=== PATIENT | male | born 1950 | race African-American/Black ===

== ENCOUNTER 2020-01-29 06:28 | Inpatient (IN) | payer MEDICARE, OTHER ==
[~2020-01-29] VITALS: Ht 157.5 cm; Wt 170.1 kg
[2020-01-29] VITALS (22 sets, daily range): BP systolic 119–166; BP diastolic 71–105
[2020-01-29] MEDS ORDERED: HYDROCODONE/ACETAMINOPHEN 5/325MG TABLET PO ONE (07:15)
[2020-01-29] MEDS ORDERED: ONDANSETRON 4MG ODT PO ONE (07:15)
[2020-01-29] MEDS ORDERED: PIPERACILLIN SODIUM/TAZOBACTAM 4.5 G in DEXT 5% WATER 100 ML IV SCH (08:45)
[2020-01-29 08:56] LABS: BASOPHILS % 0.5 % (0.0-2.0); EOSINOPHILS % 4.3 % (0.0-5.0); HEMATOCRIT. 39.6 % (42.0-52.0); HEMOGLOBIN. 12.5 g/dL (14.0-18.0); MEAN CORPUSCULAR VOLUME 79.4 fL (80.0-94.0); MEAN PLATELET VOLUME 8.5 fl (7.4-10.4); MONOCYTES % 9.9 % (2.0-8.0); NEUTROPHILS % 73.3 % (40.0-76.0); PLATELET 282 x1000/uL (130-400); RED BLOOD CELL COUNT 4.99 mill/uL (4.7-6.1); RED CELL DISTRIBUTION WIDTH 17.6 % (11.6-14.6)
[2020-01-29] MEDS ORDERED: CLINDAMYCIN 900 MG in DEXTROSE 5% WATER 50 ML IV ONE (09:00)
[2020-01-29 09:03] LABS: CHLORIDE 102 mEq/L (98-107)
[2020-01-29 09:16] LABS: CLARITY URINE CLEAR (CLEAR); COLOR URINE YELLOW (YELLOW); KETONES URINE 1+ (NEGATIVE); LEUKOCYTE ESTERASE URINE NEGATIVE (NEGATIVE); NITRITE URINE NEGATIVE (NEGATIVE); OCCULT BLOOD URINE NEGATIVE (NEGATIVE); PH URINE 7.5 (4.5-8.0); PROTEIN URINE NEGATIVE (NEGATIVE); SPECIFIC GRAVITY URINE 1.011 (1.005-1.030)
[2020-01-29] MEDS ORDERED: ONDANSETRON HCL 4MG/2ML INJ IV PRN (09:30)
[2020-01-29] MEDS ORDERED: HYDROCODONE/ACETAMINOPHEN 5/325MG TABLET PO PRN (09:30)
[2020-01-29] MEDS ORDERED: ACETAMINOPHEN 325MG TABLET PO PRN (09:30)
[2020-01-29] MEDS ORDERED: CLINDAMYCIN 600 MG in DEXTROSE 5% WATER 50 ML IV SCH (09:30)
[2020-01-29] MEDS ORDERED: DEXTROSE 50% WATER 50ML SYRINGE IV PRN (09:30)
[2020-01-29 09:52] LABS: INR 1.1
[2020-01-29] MEDS: LOSARTAN POTASSIUM 100 MG TABLET PO SCH (11:00)
[2020-01-29 11:44] LABS: HEPATITIS B SURFACE ANTIGEN NEGATIVE
[2020-01-29 12:14] LABS: HEPATITIS A AB IGM NEGATIVE (NEGATIVE)
[2020-01-29] MEDS: BLOOD SUGAR DIAGNOSTIC STRIP TEST SCH ×3 (12:30→21:12)
[2020-01-29] MEDS ORDERED: ENOXAPARIN 40MG/0.4ML SYR SUBCUT SCH (12:45)
[2020-01-29] MEDS: INSULIN LISPRO 100 UNITS/ML SUBCUT SCH ×4 (12:50→21:00)
[2020-01-29] MEDS ORDERED: KETOROLAC 15MG/ML VIAL IV PRN (15:45)
[2020-01-29 17:25] LABS: BG BASE EXCESS 3.9 mmol/L (-2.0-2.0); BG CARBOXYHEMOGLOBIN 1.3 % (0.5-1.5); BG DEOXYHEMOGLOBIN 2.5 % (0.0-5.0); BG HCO3 ACT 35.1 mmol/L (22.0-26.0); BG METHEMOGLOBIN 0.4 % (0.0-1.5); BG OXYGEN SATURATION 97.5 % (92.0-98.5); BG OXYHEMOGLOBIN 95.8 % (94.0-97.0); BG PCO2 95.1 mmHg (35.0-45.0); BG PH 7.185 (7.350-7.450); BG PO2 109.4 mmHg (75.0-100.0); BG SAMPLE SITE RIGHT RADIAL; BG TOTAL HEMOGLOBIN 12.6 g/dL (12.0-18.0); BG VENT MODE NASAL CANNULA
[2020-01-29] MEDS ORDERED: FENTANYL CITRATE/PF 500 MCG in SODIUM CHLORIDE 0.9% 40 ML IV PRN (18:15)
[2020-01-29] MEDS ORDERED: MIDAZOLAM HCL 50 MG in DEXTROSE 5% WATER 40 ML IV PRN (18:15)
[2020-01-29] MEDS: ENOXAPARIN 30MG/0.3ML SYR SUBCUT SCH ×2 (18:59→22:06)
[2020-01-29 20:47] LABS: BG BILEVEL POS AIRWAY PRESSURE 20/5; BG DEOXYHEMOGLOBIN 5.9 % (0.0-5.0); BG FRACTION INSPIRED OXYGEN 30; BG METHEMOGLOBIN 0.1 % (0.0-1.5); BG PCO2 84.1 mmHg (35.0-45.0); BG PH 7.224 (7.350-7.450); BG PO2 74.7 mmHg (75.0-100.0); BG SAMPLE SITE RIGHT RADIAL; BG VENT MODE MASK - BIPAP; BG VENT RATE 16 set
[2020-01-29] MEDS: AMLODIPINE 5MG TABLET PO SCH (21:00)
[2020-01-29] MEDS: CLINDAMYCIN 600MG PREMIX 50 ML IV SCH (21:13)
[2020-01-30] VITALS (49 sets, daily range): BP systolic 89–160; BP diastolic 52–113
[2020-01-30] MEDS: IPRATROPIUM/ALBUTEROL 0.5-3(2.5)MG/3ML NEB HHN SCH ×4 (04:16→20:35)
[2020-01-30] MEDS: CLINDAMYCIN 600MG PREMIX 50 ML IV SCH ×2 (05:24→16:59)
[2020-01-30 05:57] LABS: HEMATOCRIT. 38.3 % (42.0-52.0); HEMOGLOBIN. 11.9 g/dL (14.0-18.0); MEAN CORPUSCULAR HEMOGLOBIN 25.1 pg (28.0-32.0); MEAN CORPUSCULAR VOLUME 80.9 fL (80.0-94.0); RED BLOOD CELL COUNT 4.74 mill/uL (4.7-6.1); RED CELL DISTRIBUTION WIDTH 17.5 % (11.6-14.6)
[2020-01-30 07:01] LABS: CHLORIDE 104 mEq/L (98-107)
[2020-01-30] MEDS: INSULIN LISPRO 100 UNITS/ML SUBCUT SCH ×4 (08:20→20:45)
[2020-01-30] MEDS: BLOOD SUGAR DIAGNOSTIC STRIP TEST SCH ×4 (08:29→20:45)
[2020-01-30 08:39] LABS: BG BILEVEL POS AIRWAY PRESSURE 20/5; BG CARBOXYHEMOGLOBIN 0.2 % (0.5-1.5); BG DEOXYHEMOGLOBIN 3.6 % (0.0-5.0); BG FRACTION INSPIRED OXYGEN 30; BG HCO3 ACT 33.6 mmol/L (22.0-26.0); BG METHEMOGLOBIN 1.3 % (0.0-1.5); BG OXYGEN SATURATION 96.3 % (92.0-98.5); BG OXYHEMOGLOBIN 94.9 % (94.0-97.0); BG PCO2 71.6 mmHg (35.0-45.0); BG PH 7.289 (7.350-7.450); BG PO2 91.5 mmHg (75.0-100.0); BG SAMPLE SITE RIGHT BRACHIAL; BG TOTAL HEMOGLOBIN 11.9 g/dL (12.0-18.0); BG VENT MODE MASK - BIPAP; BG VENT RATE 16 set
[2020-01-30] MEDS: SODIUM CHLORIDE 0.45% 1,000 ML IV SCH ×2 (09:35→23:02)
[2020-01-30] MEDS: ASPIRIN 81MG TABLET PO SCH (09:35)
[2020-01-30] MEDS: LOSARTAN POTASSIUM 100 MG TABLET PO SCH (09:35)
[2020-01-30] MEDS: AMLODIPINE 5MG TABLET PO SCH (09:37)
[2020-01-30] MEDS: ENOXAPARIN 30MG/0.3ML SYR SUBCUT SCH (09:41)
[2020-01-30 10:26] LABS: PLATELET ESTIMATE NORMAL
[2020-01-30 10:27] LABS: MEAN PLATELET VOLUME 9.3 fl (7.4-10.4); PLATELET 260 x1000/uL (130-400)
[2020-01-30] MEDS: FUROSEMIDE 40MG/4ML VIAL IVP SCH (16:59)
[2020-01-30] MEDS: DILTIAZEM HCL 90MG TABLET PO SCH (18:06)
[2020-01-30] MEDS: ENOXAPARIN 40MG/0.4ML SYR SUBCUT SCH (20:46)
[2020-01-30] MEDS ORDERED: METOPROLOL TARTRATE 25MG TABLET PO SCH (21:00)
[2020-01-31] VITALS (32 sets, daily range): BP systolic 108–155; BP diastolic 62–101
[2020-01-31] MEDS: IPRATROPIUM/ALBUTEROL 0.5-3(2.5)MG/3ML NEB HHN SCH ×4 (01:11→20:30)
[2020-01-31 05:27] LABS: BASOPHILS % 0.8 % (0.0-2.0); EOSINOPHILS % 4.5 % (0.0-5.0); HEMATOCRIT. 35.6 % (42.0-52.0); HEMOGLOBIN. 11.2 g/dL (14.0-18.0); LYMPHOCYTES % 20.9 % (20.0-50.0); MEAN CORPUSCULAR HEMOGLOBIN 25.3 pg (28.0-32.0); MEAN CORPUSCULAR VOLUME 80.5 fL (80.0-94.0); MEAN PLATELET VOLUME 8.7 fl (7.4-10.4); MONOCYTES % 12.6 % (2.0-8.0); NEUTROPHILS % 61.2 % (40.0-76.0); PLATELET 249 x1000/uL (130-400); RED BLOOD CELL COUNT 4.42 mill/uL (4.7-6.1); RED CELL DISTRIBUTION WIDTH 17.7 % (11.6-14.6)
[2020-01-31] MEDS: DILTIAZEM HCL 90MG TABLET PO SCH ×4 (06:02→17:27)
[2020-01-31] MEDS: BLOOD SUGAR DIAGNOSTIC STRIP TEST SCH ×4 (07:50→21:00)
[2020-01-31] MEDS: INSULIN LISPRO 100 UNITS/ML SUBCUT SCH ×4 (08:20→21:00)
[2020-01-31] MEDS: LOSARTAN POTASSIUM 100 MG TABLET PO SCH (08:52)
[2020-01-31] MEDS: ENOXAPARIN 40MG/0.4ML SYR SUBCUT SCH ×2 (08:52→20:28)
[2020-01-31] MEDS: ASPIRIN 81MG TABLET PO SCH (08:52)
[2020-01-31] MEDS: FUROSEMIDE 40MG/4ML VIAL IVP SCH (08:52)
[2020-01-31 10:04] LABS: BG BASE EXCESS 4.2 mmol/L (-2.0-2.0); BG BILEVEL POS AIRWAY PRESSURE 20/5; BG CARBOXYHEMOGLOBIN 0.7 % (0.5-1.5); BG DEOXYHEMOGLOBIN 2.3 % (0.0-5.0); BG FRACTION INSPIRED OXYGEN 28; BG HCO3 ACT 30.4 mmol/L (22.0-26.0); BG METHEMOGLOBIN 0.2 % (0.0-1.5); BG OXYGEN SATURATION 97.7 % (92.0-98.5); BG OXYHEMOGLOBIN 96.8 % (94.0-97.0); BG PCO2 53.6 mmHg (35.0-45.0); BG PH 7.372 (7.350-7.450); BG PO2 93.3 mmHg (75.0-100.0); BG SAMPLE SITE RIGHT RADIAL; BG TOTAL HEMOGLOBIN 10.9 g/dL (12.0-18.0); BG VENT MODE MASK - BIPAP; BG VENT RATE 16 set
[2020-01-31] MEDS: CLINDAMYCIN 600MG PREMIX 50 ML IV SCH ×2 (10:43→18:30)
[2020-02-01] VITALS (10 sets, daily range): BP systolic 132–179; BP diastolic 76–101
[2020-02-01] MEDS: DILTIAZEM HCL 90MG TABLET PO SCH ×5 (01:13→23:25)
[2020-02-01] MEDS: IPRATROPIUM/ALBUTEROL 0.5-3(2.5)MG/3ML NEB HHN SCH ×3 (01:43→23:43)
[2020-02-01] MEDS: CLINDAMYCIN 600MG PREMIX 50 ML IV SCH ×3 (04:21→18:33)
[2020-02-01 05:51] LABS: BASOPHILS % 0.4 % (0.0-2.0); EOSINOPHILS % 5.9 % (0.0-5.0); HEMATOCRIT. 32.8 % (42.0-52.0); HEMOGLOBIN. 10.3 g/dL (14.0-18.0); MEAN CORPUSCULAR HEMOGLOBIN 24.9 pg (28.0-32.0); MEAN CORPUSCULAR VOLUME 79.3 fL (80.0-94.0); MEAN PLATELET VOLUME 8.7 fl (7.4-10.4); NEUTROPHILS % 59.7 % (40.0-76.0); PLATELET 248 x1000/uL (130-400); RED BLOOD CELL COUNT 4.13 mill/uL (4.7-6.1); RED CELL DISTRIBUTION WIDTH 17.1 % (11.6-14.6)
[2020-02-01] MEDS: BLOOD SUGAR DIAGNOSTIC STRIP TEST SCH ×4 (06:41→20:22)
[2020-02-01 09:17] LABS: BG BASE EXCESS 8.7 mmol/L (-2.0-2.0); BG CARBOXYHEMOGLOBIN 0.1 % (0.5-1.5); BG DEOXYHEMOGLOBIN 3.4 % (0.0-5.0); BG FRACTION INSPIRED OXYGEN 32; BG HCO3 ACT 36.4 mmol/L (22.0-26.0); BG OXYGEN SATURATION 96.6 % (92.0-98.5); BG OXYHEMOGLOBIN 96.5 % (94.0-97.0); BG PCO2 68.1 mmHg (35.0-45.0); BG PH 7.346 (7.350-7.450); BG PO2 85.9 mmHg (75.0-100.0); BG SAMPLE SITE RIGHT BRACHIAL; BG TOTAL HEMOGLOBIN 11.3 g/dL (12.0-18.0); BG VENT MODE NASAL CANNULA
[2020-02-01] MEDS: ASPIRIN 81MG TABLET PO SCH (09:37)
[2020-02-01] MEDS: LOSARTAN POTASSIUM 100 MG TABLET PO SCH (09:37)
[2020-02-01] MEDS: FUROSEMIDE 40MG/4ML VIAL IVP SCH (09:38)
[2020-02-01] MEDS: ENOXAPARIN 40MG/0.4ML SYR SUBCUT SCH ×2 (09:39→20:30)
[2020-02-01] MEDS: INSULIN LISPRO 100 UNITS/ML SUBCUT SCH ×4 (09:40→20:22)
[2020-02-01] MEDS: CLONIDINE 0.1MG TABLET PO PRN ×2 (16:49→20:30)
[2020-02-02] VITALS: BP 158/92
[2020-02-02 02:00] VITALS: BP 147/86
[2020-02-02] MEDS: CLINDAMYCIN 600MG PREMIX 50 ML IV SCH ×3 (02:56→18:22)
[2020-02-02] MEDS: DILTIAZEM HCL 90MG TABLET PO SCH ×5 (05:41→23:36)
[2020-02-02 06:14] LABS: CHLORIDE 102 mEq/L (98-107)
[2020-02-02 07:58] VITALS: BP 155/77
[2020-02-02] MEDS: INSULIN LISPRO 100 UNITS/ML SUBCUT SCH ×4 (08:00→20:40)
[2020-02-02] MEDS: IPRATROPIUM/ALBUTEROL 0.5-3(2.5)MG/3ML NEB HHN SCH ×3 (08:20→21:07)
[2020-02-02] MEDS: FUROSEMIDE 40MG/4ML VIAL IVP SCH (08:27)
[2020-02-02] MEDS: BLOOD SUGAR DIAGNOSTIC STRIP TEST SCH ×4 (08:27→20:40)
[2020-02-02] MEDS: ENOXAPARIN 40MG/0.4ML SYR SUBCUT SCH ×2 (08:27→21:45)
[2020-02-02] MEDS: ASPIRIN 81MG TABLET PO SCH (08:27)
[2020-02-02] MEDS: LOSARTAN POTASSIUM 100 MG TABLET PO SCH (08:27)
[2020-02-02 10:16] LABS: BG BASE EXCESS 14.2 mmol/L (-2.0-2.0); BG CARBOXYHEMOGLOBIN 0.6 % (0.5-1.5); BG DEOXYHEMOGLOBIN 16.4 % (0.0-5.0); BG FRACTION INSPIRED OXYGEN 21; BG HCO3 ACT 41.6 mmol/L (22.0-26.0); BG METHEMOGLOBIN 0.4 % (0.0-1.5); BG OXYGEN SATURATION 83.4 % (92.0-98.5); BG OXYHEMOGLOBIN 82.6 % (94.0-97.0); BG PCO2 66.5 mmHg (35.0-45.0); BG PH 7.414 (7.350-7.450); BG PO2 45.8 mmHg (75.0-100.0); BG SAMPLE SITE RIGHT RADIAL; BG TOTAL HEMOGLOBIN 12.2 g/dL (12.0-18.0); BG VENT MODE ROOM AIR
[2020-02-02] MEDS: HYDRALAZINE HCL 50MG TABLET PO SCH ×4 (11:52→17:30)
[2020-02-02 11:59] VITALS: BP 166/96
[2020-02-02 14:00] VITALS: BP 176/99
[2020-02-02 15:34] VITALS: BP 168/97
[2020-02-02] MEDS: CLONIDINE 0.1MG TABLET PO PRN (21:46)
[2020-02-02] MEDS: HYDRALAZINE 20MG/ML VIAL IV PRN (23:36)
[2020-02-03] VITALS (11 sets, daily range): BP systolic 103–190; BP diastolic 51–105
[2020-02-03] MEDS: HYDRALAZINE HCL 50MG TABLET PO SCH ×3 (02:00→10:49)
[2020-02-03] MEDS: CLINDAMYCIN 600MG PREMIX 50 ML IV SCH ×3 (02:07→21:10)
[2020-02-03] MEDS: DILTIAZEM HCL 90MG TABLET PO SCH ×2 (05:40→06:17)
[2020-02-03] MEDS: CLONIDINE 0.1MG TABLET PO PRN (06:18)
[2020-02-03] MEDS: BLOOD SUGAR DIAGNOSTIC STRIP TEST SCH ×4 (07:30→21:00)
[2020-02-03] MEDS: INSULIN LISPRO 100 UNITS/ML SUBCUT SCH ×4 (08:00→21:18)
[2020-02-03] MEDS: FUROSEMIDE 40MG/4ML VIAL IVP SCH (08:30)
[2020-02-03] MEDS: LOSARTAN POTASSIUM 100 MG TABLET PO SCH (08:31)
[2020-02-03] MEDS: ENOXAPARIN 40MG/0.4ML SYR SUBCUT SCH ×2 (08:31→21:10)
[2020-02-03] MEDS: ASPIRIN 81MG TABLET PO SCH (08:31)
[2020-02-03] MEDS: IPRATROPIUM/ALBUTEROL 0.5-3(2.5)MG/3ML NEB HHN SCH ×2 (08:43→15:03)
[2020-02-03] MEDS: DILTIAZEM HCL 120MG CAPSULE CD 24HR PO SCH ×2 (14:01→21:09)
[2020-02-03] MEDS: HYDRALAZINE HCL 100MG TABLET PO SCH (18:06)
[2020-02-04] VITALS (13 sets, daily range): BP systolic 109–153; BP diastolic 52–76
[2020-02-04] MEDS: IPRATROPIUM/ALBUTEROL 0.5-3(2.5)MG/3ML NEB HHN SCH ×3 (00:16→20:35)
[2020-02-04] MEDS: HYDRALAZINE HCL 100MG TABLET PO SCH ×3 (03:30→18:25)
[2020-02-04] MEDS: CLINDAMYCIN 600MG PREMIX 50 ML IV SCH ×3 (03:31→21:11)
[2020-02-04] MEDS: BLOOD SUGAR DIAGNOSTIC STRIP TEST SCH ×4 (07:30→21:08)
[2020-02-04] MEDS: INSULIN LISPRO 100 UNITS/ML SUBCUT SCH ×4 (08:00→21:00)
[2020-02-04] MEDS: FUROSEMIDE 40MG/4ML VIAL IVP SCH (08:59)
[2020-02-04] MEDS: ENOXAPARIN 40MG/0.4ML SYR SUBCUT SCH ×2 (08:59→21:12)
[2020-02-04] MEDS: ASPIRIN 81MG TABLET PO SCH (09:00)
[2020-02-04] MEDS: LOSARTAN POTASSIUM 100 MG TABLET PO SCH (09:00)
[2020-02-04] MEDS: DILTIAZEM HCL 120MG CAPSULE CD 24HR PO SCH ×2 (09:19→21:11)
[2020-02-04 13:13] LABS: BASOPHILS % 1.7 % (0.0-2.0); EOSINOPHILS % 8.3 % (0.0-5.0); HEMATOCRIT. 37.5 % (42.0-52.0); HEMOGLOBIN. 11.7 g/dL (14.0-18.0); LYMPHOCYTES % 22.1 % (20.0-50.0); MEAN CORPUSCULAR HEMOGLOBIN 24.7 pg (28.0-32.0); MEAN PLATELET VOLUME 8.4 fl (7.4-10.4); NEUTROPHILS % 53.9 % (40.0-76.0); PLATELET 305 x1000/uL (130-400); RED BLOOD CELL COUNT 4.74 mill/uL (4.7-6.1); RED CELL DISTRIBUTION WIDTH 17.5 % (11.6-14.6)
[2020-02-04 13:31] LABS: CHLORIDE 99 mEq/L (98-107)
[2020-02-05] VITALS (8 sets, daily range): BP systolic 120–156; BP diastolic 65–77
[2020-02-05] MEDS: IPRATROPIUM/ALBUTEROL 0.5-3(2.5)MG/3ML NEB HHN SCH ×4 (01:05→21:31)
[2020-02-05] MEDS: HYDRALAZINE HCL 100MG TABLET PO SCH ×3 (02:00→17:33)
[2020-02-05] MEDS: CLINDAMYCIN 600MG PREMIX 50 ML IV SCH ×2 (03:44→11:17)
[2020-02-05] MEDS: BLOOD SUGAR DIAGNOSTIC STRIP TEST SCH ×4 (07:48→21:44)
[2020-02-05] MEDS: INSULIN LISPRO 100 UNITS/ML SUBCUT SCH ×4 (08:00→21:52)
[2020-02-05] MEDS: ASPIRIN 81MG TABLET PO SCH (09:36)
[2020-02-05] MEDS: ENOXAPARIN 40MG/0.4ML SYR SUBCUT SCH ×2 (09:39→21:51)
[2020-02-05] MEDS: DILTIAZEM HCL 120MG CAPSULE CD 24HR PO SCH ×2 (09:42→21:51)
[2020-02-05] MEDS: LOSARTAN POTASSIUM 100 MG TABLET PO SCH (09:42)
[2020-02-05] MEDS: FUROSEMIDE 40MG/4ML VIAL IVP SCH (09:43)
[2020-02-05] MEDS ORDERED: LOSA100T3 PO (10:23)
[2020-02-05] MEDS ORDERED: FURO-151 MT (10:23)
[2020-02-05] MEDS ORDERED: DILT120C88 PO (10:23)
[2020-02-05] MEDS ORDERED: HYDR100T26 PO (10:23)
[2020-02-05] MEDS ORDERED: POTA-79 MT (10:23)
[2020-02-06] VITALS (8 sets, daily range): BP systolic 101–144; BP diastolic 64–99
[2020-02-06] MEDS: HYDRALAZINE HCL 100MG TABLET PO SCH ×3 (02:39→17:37)
[2020-02-06] MEDS: BLOOD SUGAR DIAGNOSTIC STRIP TEST SCH ×4 (07:48→20:38)
[2020-02-06] MEDS: INSULIN LISPRO 100 UNITS/ML SUBCUT SCH ×4 (08:00→20:41)
[2020-02-06] MEDS: IPRATROPIUM/ALBUTEROL 0.5-3(2.5)MG/3ML NEB HHN SCH ×2 (08:57→15:50)
[2020-02-06] MEDS: DILTIAZEM HCL 120MG CAPSULE CD 24HR PO SCH ×2 (09:34→20:38)
[2020-02-06] MEDS: ASPIRIN 81MG TABLET PO SCH (09:35)
[2020-02-06] MEDS: LOSARTAN POTASSIUM 100 MG TABLET PO SCH (09:35)
[2020-02-06] MEDS: FUROSEMIDE 40MG/4ML VIAL IVP SCH (09:39)
[2020-02-06] MEDS: ENOXAPARIN 40MG/0.4ML SYR SUBCUT SCH ×2 (09:41→20:38)
[2020-02-07] VITALS (11 sets, daily range): BP systolic 130–193; BP diastolic 70–95
[2020-02-07] MEDS: IPRATROPIUM/ALBUTEROL 0.5-3(2.5)MG/3ML NEB HHN SCH ×3 (01:26→14:06)
[2020-02-07] MEDS: HYDRALAZINE HCL 100MG TABLET PO SCH ×3 (02:00→18:00)
[2020-02-07] MEDS: BLOOD SUGAR DIAGNOSTIC STRIP TEST SCH ×4 (07:34→21:50)
[2020-02-07] MEDS: INSULIN LISPRO 100 UNITS/ML SUBCUT SCH ×4 (07:34→21:00)
[2020-02-07] MEDS: LOSARTAN POTASSIUM 100 MG TABLET PO SCH (09:22)
[2020-02-07] MEDS: ASPIRIN 81MG TABLET PO SCH (09:23)
[2020-02-07] MEDS: DILTIAZEM HCL 120MG CAPSULE CD 24HR PO SCH ×2 (09:23→21:50)
[2020-02-07] MEDS: FUROSEMIDE 40MG/4ML VIAL IVP SCH (09:26)
[2020-02-07] MEDS: ENOXAPARIN 40MG/0.4ML SYR SUBCUT SCH ×2 (09:26→21:00)
[2020-02-08] VITALS (7 sets, daily range): BP systolic 104–174; BP diastolic 56–96
[2020-02-08] MEDS: IPRATROPIUM/ALBUTEROL 0.5-3(2.5)MG/3ML NEB HHN SCH ×4 (00:36→15:51)
[2020-02-08] MEDS: HYDRALAZINE HCL 100MG TABLET PO SCH ×4 (02:18→20:04)
[2020-02-08] MEDS: BLOOD SUGAR DIAGNOSTIC STRIP TEST SCH ×4 (09:32→20:05)
[2020-02-08] MEDS: ENOXAPARIN 40MG/0.4ML SYR SUBCUT SCH ×2 (09:33→20:05)
[2020-02-08] MEDS: FUROSEMIDE 40MG/4ML VIAL IVP SCH (09:33)
[2020-02-08] MEDS: ASPIRIN 81MG TABLET PO SCH (09:33)
[2020-02-08] MEDS: DILTIAZEM HCL 120MG CAPSULE CD 24HR PO SCH ×2 (09:34→20:04)
[2020-02-08] MEDS: INSULIN LISPRO 100 UNITS/ML SUBCUT SCH ×4 (09:35→20:14)
[2020-02-08] MEDS: LOSARTAN POTASSIUM 100 MG TABLET PO SCH (10:58)
[2020-02-08] MEDS: HYDRALAZINE 20MG/ML VIAL IV PRN (20:53)
== END 2020-02-08 22:45 | disposition home health service (06) | DRG 871 ==
LOC: ER 06:28 → 6EST 08:59 → EDBEDREQ 09:08 → ENRESERV 11:33 → CVICU 17:55 → 5EST 01-31 14:36
PROVIDERS: ADMIT Internal Medicine; ATTEND Internal Medicine
PROC: 5A09457 Assistance with Respiratory Ventilation, 24-96 Consecutive Hours, Continuous Positive Airway Pressure (ICD-10-PCS; principal; 2020-01-29)
PROC: 5A09357 Assistance with Respiratory Ventilation, Less than 24 Consecutive Hours, Continuous Positive Airway Pressure (ICD-10-PCS; 2020-02-01)
PROC: 5A09357 Assistance with Respiratory Ventilation, Less than 24 Consecutive Hours, Continuous Positive Airway Pressure (ICD-10-PCS; 2020-02-04)
DX: A41.9 Sepsis, unspecified organism (principal); I21.4 Non-ST elevation (NSTEMI) myocardial infarction; G93.41 Metabolic encephalopathy; E43 Unspecified severe protein-calorie malnutrition; J96.22 Acute and chronic respiratory failure with hypercapnia; J96.21 Acute and chronic respiratory failure with hypoxia; I50.33 Acute on chronic diastolic (congestive) heart failure; L97.429 Non-pressure chronic ulcer of left heel and midfoot with unspecified severity; E66.2 Morbid (severe) obesity with alveolar hypoventilation; I47.1 Supraventricular tachycardia; I48.92 Unspecified atrial flutter; N17.9 Acute kidney failure, unspecified; G82.20 Paraplegia, unspecified; J44.1 Chronic obstructive pulmonary disease with (acute) exacerbation; Z68.44 Body mass index [BMI] 60.0-69.9, adult; N49.2 Inflammatory disorders of scrotum; E11.621 Type 2 diabetes mellitus with foot ulcer; I11.0 Hypertensive heart disease with heart failure; N43.3 Hydrocele, unspecified; D64.9 Anemia, unspecified; I27.20 Pulmonary hypertension, unspecified; R74.0 Nonspecific elevation of levels of transaminase and lactic acid dehydrogenase [LDH]; M17.0 Bilateral primary osteoarthritis of knee; R53.81 Other malaise; F19.10 Other psychoactive substance abuse, uncomplicated; S80.821A Blister (nonthermal), right lower leg, initial encounter; Z74.01 Bed confinement status; Z99.3 Dependence on wheelchair; Z71.3 Dietary counseling and surveillance; X58.XXXA Exposure to other specified factors, initial encounter; Y93.89 Activity, other specified; Y92.89 Other specified places as the place of occurrence of the external cause; Y99.8 Other external cause status
CPT/HCPCS: 36415; 36600; 71045; 73650; 76870; 80048; 80053; 81003; 82140; 82375; 82805; 82962; 83605; 84145; 84484; 85025; 86705; 86709; 86803; 87340; 92523; 92610; 93005; 93306; 93970; 93976; 94640; 94660; 96365; 96368; 97162; 97166; 97530; 97535; 99285; J0360; J1650; J1815; J1940; J2250; J2405; J2543; J3010; J3490; J7060; Q0162

== ENCOUNTER 2022-01-13 18:24 | Inpatient (IN) | payer MEDICARE ==
[~2022-01-13] VITALS: Ht 177.8 cm; Wt 168.3 kg
[~2022-01-13 18:24] MED LIST: DILT120C88 PO; ETOMIDATE 2MG/ML 10ML VIAL IV ONE; FURO-151 MT; HYDR100T26 PO; LOSA100T3 PO; POTA-79 MT; SODIUM CHLORIDE 0.9% 10ML VIAL ONE; VECURONIUM BROMIDE 10 MG/VIAL IV ONE
[2022-01-13 19:25] LABS: BASOPHILS % 0.4 % (0.0-2.0); EOSINOPHILS % 4.2 % (0.0-5.0); HEMATOCRIT. 43.5 % (42.0-52.0); LYMPHOCYTES % 15.8 % (20.0-50.0); MEAN CORPUSCULAR HEMOGLOBIN 24.8 pg (28.0-32.0); MEAN CORPUSCULAR VOLUME 82.8 fL (80.0-94.0); MEAN PLATELET VOLUME 8.8 fl (7.4-10.4); MONOCYTES % 14.1 % (2.0-8.0); NEUTROPHILS % 65.5 % (40.0-76.0); PLATELET 189 x1000/uL (130-400); RED BLOOD CELL COUNT 5.25 mill/uL (4.7-6.1); RED CELL DISTRIBUTION WIDTH 16.8 % (11.6-14.6)
[2022-01-13 19:57] LABS: BG BASE EXCESS 3.4 mmol/L (-2.0-2.0); BG CARBOXYHEMOGLOBIN 1.2 % (0.5-1.5); BG DEOXYHEMOGLOBIN 0.4 % (0.0-5.0); BG FRACTION INSPIRED OXYGEN 100; BG HCO3 ACT 34.8 mmol/L (22.0-26.0); BG METHEMOGLOBIN 0.3 % (0.0-1.5); BG OXYGEN SATURATION 99.6 % (92.0-98.5); BG OXYHEMOGLOBIN 98.1 % (94.0-97.0); BG PCO2 94.7 mmHg (35.0-45.0); BG PH 7.183 (7.350-7.450); BG PO2 279.8 mmHg (75.0-100.0); BG SAMPLE SITE RIGHT RADIAL; BG TOTAL HEMOGLOBIN 13.4 g/dL (12.0-18.0); BG VENT MODE MASK - BIPAP
[2022-01-13 20:01] LABS: CHLORIDE 105 mEq/L (98-107)
[2022-01-13 20:09] LABS: ETHANOL BLOOD < 10 mg/dL
[2022-01-13 20:12] LABS: CREATINE KINASE 347 IU/L (39-308)
[2022-01-13] MEDS ORDERED: FUROSEMIDE 100MG/10ML VIAL IV NR (20:24)
[2022-01-13] MEDS ORDERED: INSULIN REGULAR (HUMULIN R) 300UNITS/3ML VIAL IV NR (20:30)
[2022-01-13] MEDS ORDERED: SODIUM BICARBONATE 8.4% 1 MEQ/ML 50ML SYR IV NR (20:30)
[2022-01-13] MEDS ORDERED: CALCIUM GLUCONATE 100MG/ML 10ML VIAL IV NR (20:30)
[2022-01-13] MEDS ORDERED: DEXTROSE 50% WATER 50ML SYRINGE IV NR (20:30)
[2022-01-13] MEDS: SODIUM POLYSTYRENE SULFONATE 15 G/60 ML BOT PO NR (20:30)
[2022-01-13] MEDS ORDERED: PROPOFOL 10MG/ML 100ML 100 ML IV SCH (21:00)
[2022-01-13 23:10] LABS: CLARITY URINE CLOUDY (CLEAR); COLOR URINE DARK YELLOW (YELLOW); KETONES URINE TRACE (NEGATIVE); LEUKOCYTE ESTERASE URINE TRACE (NEGATIVE); NITRITE URINE NEGATIVE (NEGATIVE); OCCULT BLOOD URINE NEGATIVE (NEGATIVE); PROTEIN URINE 2+ (NEGATIVE); SPECIFIC GRAVITY URINE 1.027 (1.005-1.030)
[2022-01-13 23:21] LABS: *AMPHETAMINES SCREEN URINE NEGATIVE (NEGATIVE); *BARBITURATES SCREEN URINE NEGATIVE (NEGATIVE); *BENZODIAZEPINES SCREEN URINE NEGATIVE (NEGATIVE); *COCAINE SCREEN URINE NEGATIVE (NEGATIVE)
[2022-01-13 23:22] LABS: CANNABINOID URINE SCREEN NEGATIVE (NEGATIVE); METHADONE URINE SCREEN NEGATIVE (NEGATIVE); OPIATES URINE SCREEN NEGATIVE (NEGATIVE); PHENCYCLIDINE URINE SCREEN NEGATIVE (NEGATIVE)
[2022-01-13] MEDS ORDERED: NALOXONE HCL 0.4 MG/ML 1ML VIAL IV PRN (23:45)
[2022-01-14] VITALS (43 sets, daily range): BP systolic 87–146; BP diastolic 50–103
[2022-01-14] MEDS ORDERED: MORPHINE SULFATE 2 MG/ML CPJ (NOT FOR IM USE) IV PRN
[2022-01-14] MEDS ORDERED: IPRATROPIUM/ALBUTEROL 0.5-3(2.5)MG/3ML NEB NEB PRN
[2022-01-14] MEDS ORDERED: HYDROCODONE/ACETAMINOPHEN 5/325MG TABLET PO PRN
[2022-01-14] MEDS ORDERED: ENOXAPARIN 40MG/0.4ML SYR SUBCUT SCH
[2022-01-14] MEDS: SODIUM POLYSTYRENE SULFONATE 15 G/60 ML BOT PO NR (00:29)
[2022-01-14 04:43] LABS: BG BASE EXCESS 7.3 mmol/L (-2.0-2.0); BG CARBOXYHEMOGLOBIN 0.5 % (0.5-1.5); BG DEOXYHEMOGLOBIN 1.3 % (0.0-5.0); BG FRACTION INSPIRED OXYGEN 80; BG HCO3 ACT 32.9 mmol/L (22.0-26.0); BG METHEMOGLOBIN 1.1 % (0.0-1.5); BG OXYGEN SATURATION 98.7 % (92.0-98.5); BG OXYHEMOGLOBIN 97.1 % (94.0-97.0); BG PCO2 50.5 mmHg (35.0-45.0); BG PH 7.432 (7.350-7.450); BG PO2 135.1 mmHg (75.0-100.0); BG SAMPLE SITE RIGHT RADIAL; BG TOTAL HEMOGLOBIN 13.3 g/dL (12.0-18.0); BG VENT MODE VENT - AC
[2022-01-14] MEDS: ENOXAPARIN 40MG/0.4ML SYR SUBCUT SCH ×2 (08:09→21:21)
[2022-01-14] MEDS: PROPOFOL 10MG/ML 100ML 100 ML IV PRN ×3 (08:15→18:35)
[2022-01-14] MEDS: FENTANYL 2500MCG/250ML PMX 250 ML IV PRN (08:16)
[2022-01-14] MEDS ORDERED: FUROSEMIDE 40MG/4ML VIAL IVP SCH (09:00)
[2022-01-14 09:47] LABS: BASOPHILS % 0.6 % (0.0-2.0); HEMATOCRIT. 40.8 % (42.0-52.0); HEMOGLOBIN. 12.6 g/dL (14.0-18.0); LYMPHOCYTES % 15.5 % (20.0-50.0); MEAN CORPUSCULAR HEMOGLOBIN 24.9 pg (28.0-32.0); MEAN CORPUSCULAR VOLUME 80.6 fL (80.0-94.0); MEAN PLATELET VOLUME 8.8 fl (7.4-10.4); MONOCYTES % 14.4 % (2.0-8.0); NEUTROPHILS % 64.5 % (40.0-76.0); PLATELET 184 x1000/uL (130-400); RED BLOOD CELL COUNT 5.06 mill/uL (4.7-6.1); RED CELL DISTRIBUTION WIDTH 16.5 % (11.6-14.6)
[2022-01-14 10:23] LABS: PHOSPHORUS 2.9 mg/dL (2.5-4.9)
[2022-01-14 10:28] LABS: CREATINE KINASE MB FRACTION 2.5 ng/mL (0.5-3.6)
[2022-01-14] MEDS: CEFTRIAXONE 1,000 MG in DEXTROSE 5% WATER 50 ML IV SCH (13:18)
[2022-01-14] MEDS: FUROSEMIDE 40MG/4ML VIAL IVP SCH (16:58)
[2022-01-14 17:03] LABS: CREATINE KINASE MB FRACTION 1.5 ng/mL (0.5-3.6)
[2022-01-15] VITALS (44 sets, daily range): BP systolic 89–151; BP diastolic 50–88
[2022-01-15] MEDS: PROPOFOL 10MG/ML 100ML 100 ML IV PRN ×5 (01:33→22:22)
[2022-01-15 06:31] LABS: BASOPHILS % 0.6 % (0.0-2.0); EOSINOPHILS % 5.7 % (0.0-5.0); HEMATOCRIT. 38.7 % (42.0-52.0); HEMOGLOBIN. 12.2 g/dL (14.0-18.0); LYMPHOCYTES % 19.1 % (20.0-50.0); MEAN CORPUSCULAR HEMOGLOBIN 25.3 pg (28.0-32.0); MEAN CORPUSCULAR VOLUME 79.9 fL (80.0-94.0); MONOCYTES % 11.7 % (2.0-8.0); NEUTROPHILS % 62.9 % (40.0-76.0); PLATELET 140 x1000/uL (130-400); RED BLOOD CELL COUNT 4.84 mill/uL (4.7-6.1); RED CELL DISTRIBUTION WIDTH 16.2 % (11.6-14.6)
[2022-01-15 09:08] LABS: BG BASE EXCESS 10.9 mmol/L (-2.0-2.0); BG CARBOXYHEMOGLOBIN 0.2 % (0.5-1.5); BG DEOXYHEMOGLOBIN 1.4 % (0.0-5.0); BG FRACTION INSPIRED OXYGEN 70; BG HCO3 ACT 36.6 mmol/L (22.0-26.0); BG METHEMOGLOBIN 0.3 % (0.0-1.5); BG OXYGEN SATURATION 98.6 % (92.0-98.5); BG OXYHEMOGLOBIN 98.1 % (94.0-97.0); BG PCO2 53.3 mmHg (35.0-45.0); BG PH 7.455 (7.350-7.450); BG PO2 122.6 mmHg (75.0-100.0); BG SAMPLE SITE LEFT RADIAL; BG TOTAL HEMOGLOBIN 12.4 g/dL (12.0-18.0); BG VENT MODE VENT - AC
[2022-01-15] MEDS: FUROSEMIDE 40MG/4ML VIAL IVP SCH ×2 (09:25→17:50)
[2022-01-15] MEDS: ENOXAPARIN 40MG/0.4ML SYR SUBCUT SCH ×2 (09:25→21:10)
[2022-01-15] MEDS: PANTOPRAZOLE SODIUM 40 MG/VIAL IV SCH (12:09)
[2022-01-15] MEDS: CEFTRIAXONE 1,000 MG in DEXTROSE 5% WATER 50 ML IV SCH (13:01)
[2022-01-15] MEDS: IPRATROPIUM/ALBUTEROL 0.5-3(2.5)MG/3ML NEB HHN SCH ×2 (14:14→20:00)
[2022-01-15] MEDS ORDERED: VANCOMYCIN 2,000 MG in DEXT 5% WATER 500 ML IV NR (18:00)
[2022-01-16] VITALS (44 sets, daily range): BP systolic 80–141; BP diastolic 44–89
[2022-01-16] MEDS: IPRATROPIUM/ALBUTEROL 0.5-3(2.5)MG/3ML NEB HHN SCH ×4 (00:33→20:43)
[2022-01-16] MEDS: PROPOFOL 10MG/ML 100ML 100 ML IV PRN ×6 (01:45→22:11)
[2022-01-16 05:49] LABS: CHLORIDE 103 mEq/L (98-107)
[2022-01-16 05:59] LABS: BASOPHILS % 0.5 % (0.0-2.0); EOSINOPHILS % 6.3 % (0.0-5.0); HEMATOCRIT. 37.5 % (42.0-52.0); HEMOGLOBIN. 11.9 g/dL (14.0-18.0); LYMPHOCYTES % 12.9 % (20.0-50.0); MEAN CORPUSCULAR HEMOGLOBIN 25.5 pg (28.0-32.0); MEAN PLATELET VOLUME 8.8 fl (7.4-10.4); MONOCYTES % 12.3 % (2.0-8.0); PLATELET 211 x1000/uL (130-400); RED BLOOD CELL COUNT 4.68 mill/uL (4.7-6.1)
[2022-01-16 08:15] LABS: BG BASE EXCESS 9.3 mmol/L (-2.0-2.0); BG CARBOXYHEMOGLOBIN 0.5 % (0.5-1.5); BG DEOXYHEMOGLOBIN 2.8 % (0.0-5.0); BG FRACTION INSPIRED OXYGEN 50; BG HCO3 ACT 35.9 mmol/L (22.0-26.0); BG METHEMOGLOBIN 0.3 % (0.0-1.5); BG OXYGEN SATURATION 97.2 % (92.0-98.5); BG OXYHEMOGLOBIN 96.4 % (94.0-97.0); BG PCO2 57.9 mmHg (35.0-45.0); BG SAMPLE SITE RIGHT RADIAL; BG TOTAL HEMOGLOBIN 12.5 g/dL (12.0-18.0); BG VENT MODE VENT - AC
[2022-01-16] MEDS: PANTOPRAZOLE SODIUM 40 MG/VIAL IV SCH (09:08)
[2022-01-16] MEDS: FUROSEMIDE 40MG/4ML VIAL IVP SCH ×2 (09:08→17:15)
[2022-01-16] MEDS: ENOXAPARIN 40MG/0.4ML SYR SUBCUT SCH ×2 (09:09→22:09)
[2022-01-16] MEDS ORDERED: VANCOMYCIN 1G PREMIX 200 ML IV SCH (12:00)
[2022-01-16] MEDS ORDERED: VANCOMYCIN 1250MG in DEXTROSE 5% WATER 250ML IV SCH (14:00)
[2022-01-16] MEDS: CEFTRIAXONE 1,000 MG in DEXTROSE 5% WATER 50 ML IV SCH (14:02)
[2022-01-16] MEDS: FENTANYL 2500MCG/250ML PMX 250 ML IV PRN (17:16)
[2022-01-17] VITALS (45 sets, daily range): BP systolic 80–143; BP diastolic 49–91
[2022-01-17] MEDS: IPRATROPIUM/ALBUTEROL 0.5-3(2.5)MG/3ML NEB HHN SCH ×4 (00:38→20:38)
[2022-01-17] MEDS: PROPOFOL 10MG/ML 100ML 100 ML IV PRN ×6 (00:55→21:54)
[2022-01-17 07:16] LABS: CHLORIDE 100 mEq/L (98-107)
[2022-01-17 07:26] LABS: BASOPHILS % 0.4 % (0.0-2.0); HEMATOCRIT. 36.6 % (42.0-52.0); HEMOGLOBIN. 11.7 g/dL (14.0-18.0); LYMPHOCYTES % 12.9 % (20.0-50.0); MEAN CORPUSCULAR HEMOGLOBIN 25.1 pg (28.0-32.0); MEAN CORPUSCULAR VOLUME 78.9 fL (80.0-94.0); MEAN PLATELET VOLUME 8.8 fl (7.4-10.4); MONOCYTES % 13.8 % (2.0-8.0); NEUTROPHILS % 66.9 % (40.0-76.0); PLATELET 200 x1000/uL (130-400); RED BLOOD CELL COUNT 4.64 mill/uL (4.7-6.1); RED CELL DISTRIBUTION WIDTH 15.9 % (11.6-14.6)
[2022-01-17] MEDS: PANTOPRAZOLE SODIUM 40 MG/VIAL IV SCH (08:46)
[2022-01-17] MEDS: FUROSEMIDE 40MG/4ML VIAL IVP SCH ×2 (08:46→16:26)
[2022-01-17] MEDS: ENOXAPARIN 40MG/0.4ML SYR SUBCUT SCH ×2 (08:46→21:04)
[2022-01-17 09:27] LABS: BG BASE EXCESS 11.8 mmol/L (-2.0-2.0); BG CARBOXYHEMOGLOBIN 0.3 % (0.5-1.5); BG DEOXYHEMOGLOBIN 3.9 % (0.0-5.0); BG FRACTION INSPIRED OXYGEN 50; BG HCO3 ACT 38.4 mmol/L (22.0-26.0); BG METHEMOGLOBIN 0.3 % (0.0-1.5); BG OXYGEN SATURATION 96.1 % (92.0-98.5); BG OXYHEMOGLOBIN 95.5 % (94.0-97.0); BG PCO2 59.4 mmHg (35.0-45.0); BG PH 7.428 (7.350-7.450); BG PO2 83.5 mmHg (75.0-100.0); BG SAMPLE SITE LEFT RADIAL; BG TOTAL HEMOGLOBIN 12.2 g/dL (12.0-18.0); BG VENT MODE VENT - AC
[2022-01-17] MEDS: DOCUSATE SODIUM SUGAR FREE 100MG/10ML UDC NG SCH (11:45)
[2022-01-17] MEDS: CEFTRIAXONE 1,000 MG in DEXTROSE 5% WATER 50 ML IV SCH (13:04)
[2022-01-17] MEDS: LACTULOSE 20G/30ML UDC PO PRN ×2 (13:04→21:03)
[2022-01-17] MEDS: FENTANYL 2500MCG/250ML PMX 250 ML IV PRN (22:42)
[2022-01-18] VITALS (45 sets, daily range): BP systolic 91–141; BP diastolic 60–103
[2022-01-18] MEDS: IPRATROPIUM/ALBUTEROL 0.5-3(2.5)MG/3ML NEB HHN SCH ×4 (00:25→20:10)
[2022-01-18] MEDS: PROPOFOL 10MG/ML 100ML 100 ML IV PRN ×2 (05:17→19:39)
[2022-01-18 06:08] LABS: BASOPHILS % 0.4 % (0.0-2.0); HEMATOCRIT. 35.9 % (42.0-52.0); HEMOGLOBIN. 11.3 g/dL (14.0-18.0); LYMPHOCYTES % 15.8 % (20.0-50.0); MEAN CORPUSCULAR HEMOGLOBIN 25.2 pg (28.0-32.0); MEAN PLATELET VOLUME 8.8 fl (7.4-10.4); NEUTROPHILS % 62.8 % (40.0-76.0); PLATELET 211 x1000/uL (130-400); RED BLOOD CELL COUNT 4.48 mill/uL (4.7-6.1); RED CELL DISTRIBUTION WIDTH 15.8 % (11.6-14.6)
[2022-01-18 06:22] LABS: CHLORIDE 100 mEq/L (98-107)
[2022-01-18 08:32] LABS: BG CARBOXYHEMOGLOBIN 0.6 % (0.5-1.5); BG DEOXYHEMOGLOBIN 3.4 % (0.0-5.0); BG FRACTION INSPIRED OXYGEN 40; BG HCO3 ACT 37.8 mmol/L (22.0-26.0); BG METHEMOGLOBIN 0.3 % (0.0-1.5); BG OXYGEN SATURATION 96.6 % (92.0-98.5); BG OXYHEMOGLOBIN 95.7 % (94.0-97.0); BG PCO2 67.8 mmHg (35.0-45.0); BG PH 7.364 (7.350-7.450); BG PO2 82.6 mmHg (75.0-100.0); BG TOTAL HEMOGLOBIN 12.4 g/dL (12.0-18.0); BG VENT MODE VENT - AC
[2022-01-18] MEDS: PANTOPRAZOLE SODIUM 40 MG/VIAL IV SCH (09:57)
[2022-01-18] MEDS: DOCUSATE SODIUM SUGAR FREE 100MG/10ML UDC NG SCH (09:57)
[2022-01-18] MEDS: ENOXAPARIN 40MG/0.4ML SYR SUBCUT SCH ×2 (09:57→22:07)
[2022-01-18] MEDS: FUROSEMIDE 40MG/4ML VIAL IVP SCH ×2 (09:57→17:31)
[2022-01-18] MEDS ORDERED: PROPOFOL 10MG/ML 100ML 100 ML IV PRN (11:45)
[2022-01-18] MEDS: CEFTRIAXONE 1,000 MG in DEXTROSE 5% WATER 50 ML IV SCH (15:15)
[2022-01-18 16:34] LABS: BG BASE EXCESS 11.8 mmol/L (-2.0-2.0); BG CARBOXYHEMOGLOBIN 0.6 % (0.5-1.5); BG DEOXYHEMOGLOBIN 7.5 % (0.0-5.0); BG HCO3 ACT 40.3 mmol/L (22.0-26.0); BG METHEMOGLOBIN 0.5 % (0.0-1.5); BG OXYGEN SATURATION 92.4 % (92.0-98.5); BG OXYHEMOGLOBIN 91.4 % (94.0-97.0); BG PCO2 72.6 mmHg (35.0-45.0); BG PH 7.362 (7.350-7.450); BG PO2 64.5 mmHg (75.0-100.0); BG SAMPLE SITE RIGHT BRACHIAL; BG TOTAL HEMOGLOBIN 13.2 g/dL (12.0-18.0); BG VENT MODE VENT - CPAP
[2022-01-18] MEDS: ACETAMINOPHEN 325MG TABLET PO PRN (17:31)
[2022-01-18] MEDS: LACTULOSE 20G/30ML UDC PO PRN (22:07)
[2022-01-19] VITALS (34 sets, daily range): BP systolic 85–145; BP diastolic 51–92
[2022-01-19] MEDS: IPRATROPIUM/ALBUTEROL 0.5-3(2.5)MG/3ML NEB HHN SCH ×4 (02:05→20:37)
[2022-01-19] MEDS: FUROSEMIDE 40MG/4ML VIAL IVP SCH ×2 (08:33→16:34)
[2022-01-19] MEDS: PANTOPRAZOLE SODIUM 40 MG/VIAL IV SCH (08:33)
[2022-01-19] MEDS: ENOXAPARIN 40MG/0.4ML SYR SUBCUT SCH ×2 (08:34→21:40)
[2022-01-19] MEDS: DOCUSATE SODIUM SUGAR FREE 100MG/10ML UDC NG SCH (08:34)
[2022-01-19 08:59] LABS: BG BASE EXCESS 12.3 mmol/L (-2.0-2.0); BG DEOXYHEMOGLOBIN 3.3 % (0.0-5.0); BG FRACTION INSPIRED OXYGEN 40; BG HCO3 ACT 40.6 mmol/L (22.0-26.0); BG METHEMOGLOBIN 0.5 % (0.0-1.5); BG OXYGEN SATURATION 96.7 % (92.0-98.5); BG OXYHEMOGLOBIN 96.2 % (94.0-97.0); BG PCO2 72.6 mmHg (35.0-45.0); BG PH 7.365 (7.350-7.450); BG PO2 87.8 mmHg (75.0-100.0); BG SAMPLE SITE RIGHT RADIAL; BG TOTAL HEMOGLOBIN 12.4 g/dL (12.0-18.0); BG VENT MODE VENT - AC
[2022-01-19 11:31] LABS: BG BASE EXCESS 12.4 mmol/L (-2.0-2.0); BG CARBOXYHEMOGLOBIN 0.7 % (0.5-1.5); BG DEOXYHEMOGLOBIN 6.3 % (0.0-5.0); BG FRACTION INSPIRED OXYGEN 40; BG HCO3 ACT 40.1 mmol/L (22.0-26.0); BG METHEMOGLOBIN 0.3 % (0.0-1.5); BG OXYGEN SATURATION 93.6 % (92.0-98.5); BG OXYHEMOGLOBIN 92.7 % (94.0-97.0); BG PCO2 67.4 mmHg (35.0-45.0); BG PH 7.392 (7.350-7.450); BG SAMPLE SITE RIGHT RADIAL; BG TOTAL HEMOGLOBIN 12.6 g/dL (12.0-18.0); BG VENT MODE VENT - CPAP
[2022-01-20] VITALS (41 sets, daily range): BP systolic 80–134; BP diastolic 52–86
[2022-01-20] MEDS: ONDANSETRON HCL 4MG/2ML INJ IV PRN (00:46)
[2022-01-20] MEDS: IPRATROPIUM/ALBUTEROL 0.5-3(2.5)MG/3ML NEB HHN SCH ×5 (01:18→20:51)
[2022-01-20] MEDS: FUROSEMIDE 40MG/4ML VIAL IVP SCH ×2 (08:17→17:34)
[2022-01-20] MEDS: ASCORBIC ACID 500 MG TABLET PO SCH (08:18)
[2022-01-20] MEDS: ENOXAPARIN 40MG/0.4ML SYR SUBCUT SCH ×2 (08:18→23:33)
[2022-01-20] MEDS: PANTOPRAZOLE SODIUM 40 MG/VIAL IV SCH (08:18)
[2022-01-20] MEDS: DOCUSATE SODIUM SUGAR FREE 100MG/10ML UDC NG SCH (08:18)
[2022-01-20] MEDS: ZINC SULFATE 220 MG ( 50 ) CAPSULE PO SCH (08:18)
[2022-01-20 09:21] LABS: BG BASE EXCESS 12.4 mmol/L (-2.0-2.0); BG CARBOXYHEMOGLOBIN 0.6 % (0.5-1.5); BG FRACTION INSPIRED OXYGEN 40; BG HCO3 ACT 39.9 mmol/L (22.0-26.0); BG METHEMOGLOBIN 0.3 % (0.0-1.5); BG OXYHEMOGLOBIN 96.1 % (94.0-97.0); BG PCO2 67.5 mmHg (35.0-45.0); BG PO2 87.6 mmHg (75.0-100.0); BG SAMPLE SITE RIGHT RADIAL; BG TOTAL HEMOGLOBIN 11.9 g/dL (12.0-18.0); BG TOTAL RESPIRATORY RATE 19 b/min; BG VENT MODE MASK - BIPAP
[2022-01-21] VITALS (30 sets, daily range): BP systolic 98–178; BP diastolic 51–93
[2022-01-21] MEDS: IPRATROPIUM/ALBUTEROL 0.5-3(2.5)MG/3ML NEB HHN SCH ×4 (00:27→20:52)
[2022-01-21] MEDS: PANTOPRAZOLE SODIUM 40 MG/VIAL IV SCH (09:00)
[2022-01-21] MEDS: ENOXAPARIN 40MG/0.4ML SYR SUBCUT SCH ×2 (09:00→21:00)
[2022-01-21] MEDS: ZINC SULFATE 220 MG ( 50 ) CAPSULE PO SCH (09:00)
[2022-01-21] MEDS: DOCUSATE SODIUM SUGAR FREE 100MG/10ML UDC NG SCH (09:00)
[2022-01-21] MEDS: ASCORBIC ACID 500 MG TABLET PO SCH (09:00)
[2022-01-21] MEDS: FUROSEMIDE 40MG/4ML VIAL IVP SCH ×2 (09:00→17:41)
[2022-01-21] MEDS ORDERED: FURO-151 MT (18:42)
[2022-01-22] VITALS (23 sets, daily range): BP systolic 117–168; BP diastolic 70–103
[2022-01-22] MEDS: ACETAMINOPHEN 325MG TABLET PO PRN ×2 (02:09→03:44)
[2022-01-22] MEDS: IPRATROPIUM/ALBUTEROL 0.5-3(2.5)MG/3ML NEB HHN SCH ×4 (05:53→21:24)
[2022-01-22 08:26] LABS: HEMATOCRIT. 35.8 % (42.0-52.0); HEMOGLOBIN. 10.9 g/dL (14.0-18.0); MEAN CORPUSCULAR HEMOGLOBIN 24.8 pg (28.0-32.0); MEAN CORPUSCULAR VOLUME 81.2 fL (80.0-94.0); MEAN PLATELET VOLUME 8.7 fl (7.4-10.4); PLATELET 241 x1000/uL (130-400); RED CELL DISTRIBUTION WIDTH 15.7 % (11.6-14.6)
[2022-01-22 09:03] LABS: CHLORIDE 101 mEq/L (98-107)
[2022-01-22] MEDS: ENOXAPARIN 40MG/0.4ML SYR SUBCUT SCH ×2 (11:17→20:52)
[2022-01-22] MEDS: ZINC SULFATE 220 MG ( 50 ) CAPSULE PO SCH (11:17)
[2022-01-22] MEDS: FUROSEMIDE 40MG/4ML VIAL IVP SCH ×2 (11:17→17:38)
[2022-01-22] MEDS: DOCUSATE SODIUM SUGAR FREE 100MG/10ML UDC NG SCH (11:17)
[2022-01-22] MEDS: ASCORBIC ACID 500 MG TABLET PO SCH (11:17)
[2022-01-22] MEDS: PANTOPRAZOLE SODIUM 40 MG/VIAL IV SCH (11:17)
[2022-01-22 14:13] LABS: PLATELET ESTIMATE NORMAL
[2022-01-22] MEDS ORDERED: LORAZEPAM 2MG/ML CPJ IM PRN (17:30)
[2022-01-22] MEDS: LORAZEPAM 2MG/ML CPJ IV PRN (17:38)
[2022-01-22 18:59] LABS: BG BASE EXCESS 12.9 mmol/L (-2.0-2.0); BG CARBOXYHEMOGLOBIN 1.1 % (0.5-1.5); BG FRACTION INSPIRED OXYGEN 40; BG HCO3 ACT 41.2 mmol/L (22.0-26.0); BG METHEMOGLOBIN 0.2 % (0.0-1.5); BG OXYGEN SATURATION 95.9 % (92.0-98.5); BG OXYHEMOGLOBIN 94.7 % (94.0-97.0); BG PCO2 72.9 mmHg (35.0-45.0); BG PO2 82.2 mmHg (75.0-100.0); BG SAMPLE SITE RIGHT RADIAL; BG TOTAL HEMOGLOBIN 12.3 g/dL (12.0-18.0); BG VENT MODE NASAL CANNULA
[2022-01-23] VITALS (24 sets, daily range): BP systolic 107–168; BP diastolic 62–111
[2022-01-23] MEDS: IPRATROPIUM/ALBUTEROL 0.5-3(2.5)MG/3ML NEB HHN SCH ×4 (02:25→20:31)
[2022-01-23] MEDS: FUROSEMIDE 40MG/4ML VIAL IVP SCH ×2 (08:44→17:00)
[2022-01-23] MEDS: ENOXAPARIN 40MG/0.4ML SYR SUBCUT SCH ×2 (08:45→22:41)
[2022-01-23] MEDS: ASCORBIC ACID 500 MG TABLET PO SCH (08:45)
[2022-01-23] MEDS: ZINC SULFATE 220 MG ( 50 ) CAPSULE PO SCH (08:45)
[2022-01-23] MEDS: DOCUSATE SODIUM SUGAR FREE 100MG/10ML UDC NG SCH (08:45)
[2022-01-23] MEDS: PANTOPRAZOLE SODIUM 40 MG/VIAL IV SCH (08:45)
[2022-01-23] MEDS: ONDANSETRON HCL 4MG/2ML INJ IV PRN (08:45)
[2022-01-23 13:04] LABS: BG BASE EXCESS 17.1 mmol/L (-2.0-2.0); BG CARBOXYHEMOGLOBIN 0.9 % (0.5-1.5); BG DEOXYHEMOGLOBIN 3.5 % (0.0-5.0); BG HCO3 ACT 46.5 mmol/L (22.0-26.0); BG METHEMOGLOBIN 0.2 % (0.0-1.5); BG OXYGEN SATURATION 96.5 % (92.0-98.5); BG OXYHEMOGLOBIN 95.4 % (94.0-97.0); BG PH 7.356 (7.350-7.450); BG PO2 83.7 mmHg (75.0-100.0); BG SAMPLE SITE RIGHT RADIAL; BG TOTAL HEMOGLOBIN 12.3 g/dL (12.0-18.0); BG VENT MODE MASK - BIPAP
[2022-01-24] VITALS (24 sets, daily range): BP systolic 119–169; BP diastolic 65–111
[2022-01-24] MEDS: IPRATROPIUM/ALBUTEROL 0.5-3(2.5)MG/3ML NEB HHN SCH ×4 (02:22→21:17)
[2022-01-24 06:33] LABS: EOSINOPHILS % 8.4 % (0.0-5.0); HEMATOCRIT. 37.5 % (42.0-52.0); HEMOGLOBIN. 11.3 g/dL (14.0-18.0); LYMPHOCYTES % 22.8 % (20.0-50.0); MEAN CORPUSCULAR HEMOGLOBIN 24.5 pg (28.0-32.0); MEAN CORPUSCULAR VOLUME 81.1 fL (80.0-94.0); MEAN PLATELET VOLUME 9.4 fl (7.4-10.4); MONOCYTES % 13.3 % (2.0-8.0); NEUTROPHILS % 54.5 % (40.0-76.0); PLATELET 239 x1000/uL (130-400); RED BLOOD CELL COUNT 4.63 mill/uL (4.7-6.1); RED CELL DISTRIBUTION WIDTH 15.5 % (11.6-14.6)
[2022-01-24 06:39] LABS: CHLORIDE 98 mEq/L (98-107)
[2022-01-24] MEDS: FUROSEMIDE 40MG/4ML VIAL IVP SCH ×2 (08:40→17:55)
[2022-01-24] MEDS: PANTOPRAZOLE SODIUM 40 MG/VIAL IV SCH (08:40)
[2022-01-24] MEDS: ZINC SULFATE 220 MG ( 50 ) CAPSULE PO SCH (08:40)
[2022-01-24] MEDS: LORAZEPAM 2MG/ML CPJ IV PRN ×2 (08:40→22:08)
[2022-01-24] MEDS: DOCUSATE SODIUM SUGAR FREE 100MG/10ML UDC NG SCH (08:40)
[2022-01-24] MEDS: ENOXAPARIN 40MG/0.4ML SYR SUBCUT SCH ×2 (08:41→21:58)
[2022-01-24] MEDS: ASCORBIC ACID 500 MG TABLET PO SCH (09:26)
[2022-01-24 12:11] LABS: BG BASE EXCESS 16.3 mmol/L (-2.0-2.0); BG CARBOXYHEMOGLOBIN 0.4 % (0.5-1.5); BG DEOXYHEMOGLOBIN 5.9 % (0.0-5.0); BG FRACTION INSPIRED OXYGEN 32; BG HCO3 ACT 44.9 mmol/L (22.0-26.0); BG METHEMOGLOBIN 0.6 % (0.0-1.5); BG OXYHEMOGLOBIN 93.1 % (94.0-97.0); BG PCO2 76.3 mmHg (35.0-45.0); BG PH 7.388 (7.350-7.450); BG PO2 67.1 mmHg (75.0-100.0); BG SAMPLE SITE RIGHT RADIAL; BG TOTAL HEMOGLOBIN 12.7 g/dL (12.0-18.0); BG VENT MODE NASAL CANNULA
[2022-01-25] VITALS (28 sets, daily range): BP systolic 119–217; BP diastolic 72–128
[2022-01-25] MEDS: IPRATROPIUM/ALBUTEROL 0.5-3(2.5)MG/3ML NEB HHN SCH ×4 (02:50→20:20)
[2022-01-25] MEDS: CLONIDINE 0.1MG TABLET PO PRN ×2 (02:53→18:00)
[2022-01-25 05:47] LABS: BASOPHILS % 1.4 % (0.0-2.0); EOSINOPHILS % 7.5 % (0.0-5.0); HEMATOCRIT. 36.4 % (42.0-52.0); HEMOGLOBIN. 11.2 g/dL (14.0-18.0); LYMPHOCYTES % 25.7 % (20.0-50.0); MEAN CORPUSCULAR HEMOGLOBIN 24.8 pg (28.0-32.0); MEAN CORPUSCULAR VOLUME 80.5 fL (80.0-94.0); MEAN PLATELET VOLUME 9.1 fl (7.4-10.4); MONOCYTES % 14.7 % (2.0-8.0); NEUTROPHILS % 50.7 % (40.0-76.0); PLATELET 243 x1000/uL (130-400); RED BLOOD CELL COUNT 4.52 mill/uL (4.7-6.1); RED CELL DISTRIBUTION WIDTH 15.3 % (11.6-14.6)
[2022-01-25 06:00] LABS: CHLORIDE 97 mEq/L (98-107)
[2022-01-25] MEDS: ZINC SULFATE 220 MG ( 50 ) CAPSULE PO SCH ×2 (09:00→09:10)
[2022-01-25] MEDS: ASCORBIC ACID 500 MG TABLET PO SCH ×2 (09:00→09:10)
[2022-01-25] MEDS: DOCUSATE SODIUM SUGAR FREE 100MG/10ML UDC NG SCH ×2 (09:00→09:10)
[2022-01-25] MEDS: PANTOPRAZOLE SODIUM 40 MG/VIAL IV SCH (09:10)
[2022-01-25] MEDS: FUROSEMIDE 40MG/4ML VIAL IVP SCH ×2 (09:10→17:51)
[2022-01-25] MEDS: ENOXAPARIN 40MG/0.4ML SYR SUBCUT SCH ×2 (09:10→21:26)
[2022-01-25] MEDS: LORAZEPAM 2MG/ML CPJ IV PRN (21:25)
[2022-01-26] VITALS (24 sets, daily range): BP systolic 124–174; BP diastolic 75–116
[2022-01-26] MEDS: IPRATROPIUM/ALBUTEROL 0.5-3(2.5)MG/3ML NEB HHN SCH ×4 (02:05→20:44)
[2022-01-26 06:09] LABS: CHLORIDE 96 mEq/L (98-107)
[2022-01-26 06:15] LABS: BASOPHILS % 1.1 % (0.0-2.0); EOSINOPHILS % 7.4 % (0.0-5.0); HEMOGLOBIN. 11.8 g/dL (14.0-18.0); LYMPHOCYTES % 23.5 % (20.0-50.0); MEAN CORPUSCULAR HEMOGLOBIN 24.3 pg (28.0-32.0); MEAN CORPUSCULAR VOLUME 80.5 fL (80.0-94.0); MEAN PLATELET VOLUME 9.1 fl (7.4-10.4); PLATELET 242 x1000/uL (130-400); RED BLOOD CELL COUNT 4.85 mill/uL (4.7-6.1); RED CELL DISTRIBUTION WIDTH 15.6 % (11.6-14.6)
[2022-01-26] MEDS: PANTOPRAZOLE SODIUM 40 MG/VIAL IV SCH (08:07)
[2022-01-26] MEDS: FUROSEMIDE 40MG/4ML VIAL IVP SCH ×2 (08:07→16:51)
[2022-01-26] MEDS: ASCORBIC ACID 500 MG TABLET PO SCH (08:08)
[2022-01-26] MEDS: DOCUSATE SODIUM SUGAR FREE 100MG/10ML UDC NG SCH (08:08)
[2022-01-26] MEDS: ZINC SULFATE 220 MG ( 50 ) CAPSULE PO SCH (08:08)
[2022-01-26] MEDS: ENOXAPARIN 40MG/0.4ML SYR SUBCUT SCH (08:08)
[2022-01-26] MEDS ORDERED: AMLODIPINE 10MG TABLET PO SCH (10:00)
[2022-01-26] MEDS: CLONIDINE 0.1MG TABLET PO PRN (16:51)
== END 2022-01-26 20:45 | DRG 207 ==
LOC: ER 18:24 → CVICU 23:30 → ENRESERV 01-14 03:06
PROVIDERS: ADMIT Internal Medicine Nephrology; ATTEND Internal Medicine Nephrology
PROC: 5A1955Z Respiratory Ventilation, Greater than 96 Consecutive Hours (ICD-10-PCS; principal; 2022-01-13)
PROC: 0BH17EZ Insertion of Endotracheal Airway into Trachea, Via Natural or Artificial Opening (ICD-10-PCS; 2022-01-13)
PROC: 02HV33Z Insertion of Infusion Device into Superior Vena Cava, Percutaneous Approach (ICD-10-PCS; 2022-01-13)
PROC: B548ZZA Ultrasonography of Superior Vena Cava, Guidance (ICD-10-PCS; 2022-01-13)
PROC: 5A09357 Assistance with Respiratory Ventilation, Less than 24 Consecutive Hours, Continuous Positive Airway Pressure (ICD-10-PCS; 2022-01-13)
PROC: 5A09357 Assistance with Respiratory Ventilation, Less than 24 Consecutive Hours, Continuous Positive Airway Pressure (ICD-10-PCS; 2022-01-20)
PROC: 5A09357 Assistance with Respiratory Ventilation, Less than 24 Consecutive Hours, Continuous Positive Airway Pressure (ICD-10-PCS; 2022-01-21)
PROC: 5A09357 Assistance with Respiratory Ventilation, Less than 24 Consecutive Hours, Continuous Positive Airway Pressure (ICD-10-PCS; 2022-01-22)
PROC: 5A09357 Assistance with Respiratory Ventilation, Less than 24 Consecutive Hours, Continuous Positive Airway Pressure (ICD-10-PCS; 2022-01-23)
PROC: 5A09357 Assistance with Respiratory Ventilation, Less than 24 Consecutive Hours, Continuous Positive Airway Pressure (ICD-10-PCS; 2022-01-24)
DX: J96.02 Acute respiratory failure with hypercapnia (principal); I50.33 Acute on chronic diastolic (congestive) heart failure; E43 Unspecified severe protein-calorie malnutrition; J18.9 Pneumonia, unspecified organism; G93.41 Metabolic encephalopathy; N17.9 Acute kidney failure, unspecified; E66.2 Morbid (severe) obesity with alveolar hypoventilation; I13.0 Hypertensive heart and chronic kidney disease with heart failure and stage 1 through stage 4 chronic kidney disease, or unspecified chronic kidney disease; Z68.43 Body mass index [BMI] 50.0-59.9, adult; L89.156 Pressure-induced deep tissue damage of sacral region; Z20.822 Contact with and (suspected) exposure to COVID-19; N18.9 Chronic kidney disease, unspecified; E87.5 Hyperkalemia; E11.22 Type 2 diabetes mellitus with diabetic chronic kidney disease; Z79.899 Other long term (current) drug therapy; Z78.1 Physical restraint status
CPT/HCPCS: 36415; 36600; 71045; 80048; 80053; 80202; 80305; 80320; 81003; 82040; 82375; 82550; 82553; 82805; 82962; 83605; 83735; 83880; 84100; 84134; 84145; 84478; 84484; 85025; 86140; 87070; 87426; 93005; 93306; 93923; 93970; 94002; 94003; 94640; 94660; 97110; 97162; 97166; 97530; 99291; A6261; C9113; J0610; J0696; J1650; J1940; J2060; J2405; J2704; J3010; J3370; J3490; J7060; A4315; G0480